=== PATIENT | female | born 1955 | race Caucasian/White ===

== ENCOUNTER 2022-01-20 09:53 | Inpatient (IN) | payer OTHER ==
[2022-01-20 11:09] LABS: #Eosinphils 0.2 10x3/uL (0.0-0.5); #Monocytes 0.7 10x3/uL (0.0-1.1); #Neutrophils 6.6 10x3/uL (1.5-8.4); %Basophils 0.1 % (0.0-2.0); %Eosinophils 1.6 % (0.0-6.0); %Lymphocytes 18.7 % (18.0-47.0); %Neutrophils 71.4 % (40.0-75.0); Hemoglobin 11.9 g/dL (12.0-15.5); Mean Corpuscular HGB CONC 32.1 g/dL (32.0-36.0); Mean Corpuscular Hemoglobin 30.4 pg (27.0-33.0); Mean Corpuscular Volume 94.9 fl (81.6-98.3); Mean Platelet Volume 10.1 fl (7.4-10.4); Platelet Count 394 10x3/uL (150-450); Red Blood Cell (RBC) Count 3.91 10x6/uL (3.90-5.03); White Blood Cell (WBC) Count 9.2 10x3/uL (3.5-10.5)
[2022-01-20 11:11] LABS: Bilirubin Neg (Negative); Blood, Urine 10 (Negative); Clarity Cloudy (Clear); Glucose, Urine (Dipstick) Normal (Negative); Ketone, Urine 5 mg/dL (Negative); Leukocyte 500 (Negative); Nitrite Negative (Negative); Protein, Urine (Dipstick) 30 mg/dl (Neg-Trace); Specific Gravity, Urine 1.015 (1.002-1.036)
[2022-01-20 11:21] LABS: Bacteria/HPF 1+ HPF (None Seen); RBC/HPF None Seen HPF (0-3)
[2022-01-20 11:22] LABS: Calcium Oxalate Crystals 3+ HPF (None Seen)
[2022-01-20 11:22] LABS: ALT (SGPT) 19 U/L (8-55); AST (SGOT) 14 U/L (5-34); Albumin 4.3 g/dL (3.4-4.8); Alkaline Phosphatase 58 U/L (40-110); Anion Gap 14 mmol/L (10-20); BUN (Urea Nitrogen) 23 mg/dL (9.8-20.1); Bilirubin, Total 0.2 mg/dL (0.2-1.2); CK (CPK) 50 U/L (29-168); Calc. Creatinine Clearance 0 mL/min (70-130); Calcium 10.3 mg/dL (7.8-10.44); Carbon Dioxide 28 mmol/L (23-31); Chloride 98 mmol/L (98-107); Estimated GFR 45; Globulin 2.9 g/dL (2.4-3.5); Glucose 116 mg/dL (80-115); Protein, Total 7.2 g/dL (5.8-8.1); Sodium 137 mmol/L (136-145)
[2022-01-20 11:27] LABS: Magnesium 2.1 mg/dL (1.6-2.6)
[2022-01-20 11:28] LABS: Potassium 2.6 mmol/L (3.5-5.1)
[2022-01-20] MEDS ORDERED: Potassium Chloride 20 MEQ/100 ML PREMIX BAG ONE (11:58)
[2022-01-20] MEDS ORDERED: Potassium Chloride 20 MEQ TAB ONE (11:58)
[2022-01-20] MEDS ORDERED: Magnesium 2 GM/50 ML BAG (IN WATER) ONE (11:58)
[2022-01-20] MEDS ORDERED: Acetaminophen 500 MG TAB ONE (12:51)
[2022-01-20] MEDS ORDERED: Acetaminophen 650 MG Suppository PR PRN (13:32)
[2022-01-20] MEDS ORDERED: Electrolyte Replacement Protocol 1 EACH FS PRN (13:36)
[2022-01-20] MEDS ORDERED: NS 0.9% w/ 40 MEQ KCL 1,000 ML IV SCH (13:45)
[2022-01-20 13:50] VITALS: BMI 33.6
[2022-01-20] MEDS ORDERED: Potassium Chloride 20 MEQ TAB PO SCH (14:00)
[2022-01-20 14:53] LABS: Anion Gap 17 mmol/L (10-20); BUN (Urea Nitrogen) 27 mg/dL (9.8-20.1); Calc. Creatinine Clearance 59 mL/min (70-130); Calcium 10.3 mg/dL (7.8-10.44); Carbon Dioxide 25 mmol/L (23-31); Chloride 99 mmol/L (98-107); Estimated GFR 46; Glucose 117 mg/dL (80-115); Sodium 137 mmol/L (136-145)
[2022-01-20] MEDS: Acetaminophen 325 MG TAB PO PRN ×2 (15:01→22:46)
[2022-01-20 15:06] LABS: Potassium 3.9 mmol/L (3.5-5.1)
[2022-01-20] MEDS ORDERED: Lidocaine 5% Patch TD SCH (16:30)
[2022-01-20] MEDS: Sodium Chloride 0.9% 1,000 ML IV SCH (17:05)
[2022-01-20] MEDS: Buprenorphine 8mg/Naloxone 2mg per 1 FILM PO SCH ×3 (18:02→18:08)
[2022-01-20 18:06] LABS: Bilirubin Neg (Negative); Blood, Urine Negative (Negative); Clarity Clear (Clear); Glucose, Urine (Dipstick) Normal (Negative); Ketone, Urine 5 mg/dL (Negative); Leukocyte 25 (Negative); Nitrite Negative (Negative); Protein, Urine (Dipstick) 30 mg/dl (Neg-Trace); Urobilinogen Normal mg/dL (Less than 2)
[2022-01-20 18:11] LABS: Urine Culture Reflex No No
[2022-01-20 18:14] LABS: Amphetamine Not Detected (NotDetected); Barbiturates Screen Detected (NotDetected); Benzodiazepine Screen Not Detected (NotDetected); Cocaine Metabolite Screen Not Detected (NotDetected); Methadone Not Detected (NotDetected); Methamphetamine Not Detected (NotDetected); Opiate Screen Detected (NotDetected); Oxycodone Screen Not Detected (NotDetected); Phencyclidine (PCP) Not Detected (NotDetected); THC/Cannabinoid Screen Not Detected (NotDetected); Tricyclic Screen Not Detected (NotDetected)
[2022-01-20 18:20] LABS: Bacteria/HPF 2+ HPF (None Seen); Calcium Oxalate Crystals 4+ HPF (None Seen); RBC/HPF None Seen HPF (0-3); Squamous Epithelial 0-3 HPF (0-3); WBC/HPF 0-3 HPF (0-3)
[2022-01-20] MEDS ORDERED: traMADol HCl 50 MG TAB PO SCH (22:30)
[2022-01-21] MEDS ORDERED: Ketorolac Tromethamine 30 MG/ML VIAL IVP SCH (00:15)
[2022-01-21] MEDS: Sodium Chloride 0.9% 1,000 ML IV SCH (04:03)
[2022-01-21] MEDS ORDERED: Transdermal Patch Removal TOP SCH (04:30)
[2022-01-21 04:42] LABS: Anion Gap 12 mmol/L (10-20); BUN (Urea Nitrogen) 25 mg/dL (9.8-20.1); Calc. Creatinine Clearance 100 mL/min (70-130); Calcium 8.7 mg/dL (7.8-10.44); Carbon Dioxide 25 mmol/L (23-31); Chloride 106 mmol/L (98-107); Estimated GFR 87; Glucose 98 mg/dL (80-115); Potassium 3.5 mmol/L (3.5-5.1); Sodium 139 mmol/L (136-145)
[2022-01-21 04:47] LABS: #Eosinphils 0.2 10x3/uL (0.0-0.5); #Monocytes 0.5 10x3/uL (0.0-1.1); #Neutrophils 3.2 10x3/uL (1.5-8.4); %Eosinophils 4.3 % (0.0-6.0); %Lymphocytes 28.8 % (18.0-47.0); %Neutrophils 57.7 % (40.0-75.0); Hemoglobin 9.3 g/dL (12.0-15.5); Mean Corpuscular HGB CONC 30.7 g/dL (32.0-36.0); Mean Corpuscular Hemoglobin 29.6 pg (27.0-33.0); Mean Corpuscular Volume 96.5 fl (81.6-98.3); Mean Platelet Volume 9.8 fl (7.4-10.4); Platelet Count 288 10x3/uL (150-450); RBC Distribution Width 15.4 % (11.5-14.5); Red Blood Cell (RBC) Count 3.14 10x6/uL (3.90-5.03); White Blood Cell (WBC) Count 5.6 10x3/uL (3.5-10.5)
[2022-01-21] MEDS ORDERED: Potassium Chloride 20 MEQ TAB PO SCH (05:00)
[2022-01-21] MEDS ORDERED: traMADol HCl 50 MG TAB PO SCH (07:00)
[2022-01-21] MEDS: Acetaminophen 325 MG TAB PO PRN (07:05)
[2022-01-21] MEDS ORDERED: Buprenorphine 8mg/Naloxone 2mg per 1 FILM PO SCH ×2 (09:00)
[2022-01-21] MEDS: Buprenorphine 8mg/Naloxone 2mg per 1 FILM PO SCH (09:59)
[2022-01-21 11:06] VITALS: BP 141/91; TEMP 98.1
== END 2022-01-21 11:45 | DRG 641 ==
LOC: CSHERS 09:53 → CSHTELE 12:46
PROVIDERS: ADMIT Family Medicine; ATTEND Internal Medicine
DX: E87.6 Hypokalemia (principal); N17.9 Acute kidney failure, unspecified; G89.29 Other chronic pain; J44.9 Chronic obstructive pulmonary disease, unspecified; F17.210 Nicotine dependence, cigarettes, uncomplicated; K21.9 Gastro-esophageal reflux disease without esophagitis; Z20.822 Contact with and (suspected) exposure to COVID-19; F11.90 Opioid use, unspecified, uncomplicated
CPT/HCPCS: 36415; 80048; 80053; 80306; 81003; 81015; 82550; 83735; 84443; 84484; 85025; 87086; 93005; 93010; 94760; 96365; 96368; J3475; J3480; J7050; U0003; U0005

== ENCOUNTER 2022-01-30 11:52 | Emergency (ER) | payer OTHER, MEDICARE ==
[2022-01-30] MEDS ORDERED: Ondansetron ODT 4 MG TAB ONE (12:19)
[2022-01-30] MEDS ORDERED: Albuterol Sulfate 2.5 mg/3 ml Neb ONE (12:20)
[2022-01-30 13:14] LABS: SARS-CoV-2 NAA Rapid Test Not Detected (NotDetected)
[2022-01-30] MEDS ORDERED: Doxycycline 100 MG CAP PO SCH (13:45)
== END 2022-01-30 13:51 | disposition home or self-care (01) ==
LOC: CSHERS 11:52
DX: J18.9 Pneumonia, unspecified organism (principal); J44.9 Chronic obstructive pulmonary disease, unspecified; F17.200 Nicotine dependence, unspecified, uncomplicated; Z20.822 Contact with and (suspected) exposure to COVID-19; Z79.899 Other long term (current) drug therapy
CPT/HCPCS: 71045; 93005; J7611; Q0162